=== PATIENT | female | born 1960 | race Caucasian/White ===

== ENCOUNTER → 2016-09-30 | Outpatient (CLI) | payer BC ==
--- NOTE | 2016-09-30 09:30 | WWHP ---
DATE OF SERVICE: 09/20/2016 CHIEF COMPLAINT: Patient is here for her routine gynecologic exam and mammogram. HPI: This is a 56-year-old, G2, P2 with an LMP of 2003. She is status post FRANKLIN/BSO for uterine fibroids. The patient has been on Estrace 0.5 mg daily during the past year. She states for the entire year, she has had hot flashes and has constantly been feeling warm and sweaty. She states she tends to always feel flush as well. She would like to go back up to Estrace 1 mg daily. PAST MEDICAL HISTORY: Unremarkable. MEDICATIONS: Estrace 0.5 mg daily. ALLERGIES: No known drug allergies. 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 SOCIAL HISTORY: She quit smoking in 02/2016. She denies alcohol and drug use. She has been since 1994 and this is her second marriage. 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 She has 2 grandsons born in 2015. REVIEW OF SYSTEMS: She has gained 12 pounds over the last year. She denies respiratory, cardiac, or GI problems. PHYSICAL EXAM: Blood pressure 108/74. Height 5 feet 10 inches, weight 211 pounds. Temperature 97.6, pulse 67. This a well-developed, well-nourished white female who is alert and oriented x3 in no acute distress. HEENT is within normal limits. NECK: Supple without mass or thyromegaly. CHEST AND LUNGS: Clear to auscultation. HEART: Regular rate and rhythm. Breasts are without mass or discharge. Axillary exam is negative for adenopathy. BACK: Negative for CVA tenderness. ABDOMEN: Soft, nontender, without palpable masses. PELVIC EXAM: Normal external genitalia. Vagina appears normal without significant atrophy. There is no evidence of prolapse. Bimanual exam is negative for mass or tenderness. Rectovaginal exam is negative for mass or tenderness and is negative for occult blood. EXTREMITIES: Nontender. IMPRESSION: 1. A 56-year-old menopausal female, status post total abdominal hysterectomy/bilateral salpingo-oophorectomy for benign reasons with normal gynecologic exam. 2. Moderate vasomotor symptoms on the lower dose of ERT. PLAN: 1. Pap smears have been discontinued. 2. Self breast examination was discussed. 3. Mammogram will be done today. 4. We have had a long discussion regarding ERT and we have again discussed the importance of trying to use the lowest effective dose. She does not seem to be doing very well with the current dose. We will go back up to one Estrace 1 mg daily. Within the upcoming year she will again try to wean down from this dose. 5. Osteoporosis prevention was discussed. 6. Colonoscopy is due and she states she will be seeing Dr. Akhtar for this. 7. She will return in one year.
--- NOTE | 2016-10-01 11:28 | MM ---
Reason for exam: screening (asymptomatic). Last mammogram was performed 1 year ago. History: Patient is postmenopausal and history of other cancer. Family history of breast cancer in paternal aunt at age 55. Took hormonal contraceptives for 6 years beginning at age 19. Taking estrogen for 6 years 4 months beginning at age 43. Physical Findings: A clinical breast exam by your physician is recommended on an annual basis and results should be correlated with mammographic findings. MG Screening Mammo w CAD Bilateral CC and MLO view(s) were taken. Prior study comparison: September 17, 2015, bilateral MG screening mammo w CAD. September 05, 2014, bilateral MG screening mammo w CAD. There are scattered fibroglandular densities. No significant changes when compared with prior studies. ASSESSMENT: Benign, BI-RAD 2 RECOMMENDATION: Routine screening mammogram of both breasts in 1 year.
== END | disposition home or self-care (01) ==
LOC: WWCWWP 08:31
PROVIDERS: ATTEND Obstetrics & Gynecology
DX: Z12.31 Encounter for screening mammogram for malignant neoplasm of breast (principal)

== ENCOUNTER → 2018-02-01 | Outpatient (CLI) | payer BC ==
[2018-02-01 16:18] VITALS: BP 134/75; PULSE 92; TEMP 97.3; BMI 29.5
--- NOTE | 2018-02-01 17:01 | P.HPOB ---
History of Present Illness H&P Date: 02/01/18 Chief Complaint: The patient is here for her routine gynecologic exam and mammogram. This is a 57-year-old with an LMP of 2003. The patient is status post FRANKLIN BSO for uterine fibroids. The patient has been on Estrace for ERT for several years. 2 years ago she tried to wean from Estrace 1 mg to 0.5 mg daily , but had severe hot flashes. During the past year, we went back to 1 mg daily and she states she has done much better. During the summer, she tried to take 1 mg every other day but had worse hot flashes and redness with flushing up her neck at several times during the day. She is otherwise without complaints. Review of Systems The patient has lost 5 pounds over the last year. She denies respiratory, cardiac, or G.I. problems. 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 She had a FRANKLIN BSO for uterine fibroids. History of Any Multi-Drug Resistant Organisms: None Reported Past Surgical History: Cholecystectomy (Laparoscopic), Hysterectomy (FRANKLIN BSO in 2003) Additional Past Surgical History / Comment(s): Colonoscopy 2010. Past Psychological History: No Psychological Hx Reported Smoking Status: Current every day smoker (Half a pack or less per day.) Past Alcohol Use History: None Reported Past Drug Use History: None Reported Additional History: She has been since 1994 and this is her 2nd marriage. 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 - Past Family History Mother Family Medical History: Cancer (Colon cancer) Additional Family Medical History / Comment(s): Nephew had non-Hodgkin's lymphoma, maternal aunt had ovarian cancer. Father Family Medical History: Cancer (Lung cancer) Brother(s) Family Medical History: Cancer (Melanoma) Medications and Allergies Home Medications Medication Instructions Recorded Confirmed Type Estradiol [Estrace] 1 mg PO DAILY 02/01/18 02/01/18 History Allergies Allergy/AdvReac Type Severity Reaction Status Date / Time No Known Allergies Allergy Unverified 02/01/18 16:14 Exam Vital Signs Temp Pulse BP 02/01/18 16:14 97.3 F L 92 134/75 Intake and Output 02/01/18 02/01/18 02/01/18 06:59 14:59 22:59 Other: Weight 93.44 kg Height 5'10", BMI 29.6. This is a well-developed well-nourished white female who is alert and oriented times 3 in no acute distress. HEENT: Within normal limits. NECK: Supple without mass or thyromegaly. CHEST AND LUNGS: Clear to auscultation. HEART: Regular rate and rhythm. BREASTS: Are without mass or discharge. AXILLARY EXAM: Negative for adenopathy. BACK: Negative for CVA tenderness. ABDOMEN: Soft, nontender, without palpable masses. PELVIC EXAM: External genitalia appears normal with mild atrophy. Vagina appears normal with mild atrophy. There is no evidence of prolapse. Bimanual examination is negative for mass or tenderness. RECTAL EXAM: Rectovaginal exam is negative for mass or tenderness and is negative for occult blood. EXTREMITIES: Nontender. IMPRESSION: 1. 57-year-old menopausal female status post FRANKLIN BSO for benign reasons with normal gynecologic exam. 2. The patient is on ERT in the form of estradiol 1 mg daily. Vasomotor symptoms were worse when she tried to take it every other day. PLAN: 1. Pap smears have been discontinued. 2. Self breast awareness was discussed with the patient. 3. Screening mammogram will be done today. 4. We have had a long discussion regarding ERT and menopausal symptoms. I have strongly recommended that she continued to try to wean off of ERT. We'll try decreasing the estradiol to 0.5 mg daily. We have discussed other options including transdermal ERT and taking the estradiol in the morning instead of at HS. She will call if she is having significant symptoms if she thinks we should try something different. The electronic prescription for her ERT will be sent to [facility] pharmacy. 5. Osteoporosis prevention was discussed. 6. I've recommended screening colonoscopy based on her age. She has an appointment with Dr. Hutchinson in March for this. 7. She will return in one year.
--- NOTE | 2018-02-02 13:47 | MM ---
Reason for exam: screening (asymptomatic). Last mammogram was performed 1 year and 4 months ago. History: Patient is postmenopausal and history of other cancer. Family history of breast cancer in paternal aunt at age 55. Took hormonal contraceptives for 6 years beginning at age 19. Taking estrogen for 6 years 4 months beginning at age 43. Physical Findings: A clinical breast exam by your physician is recommended on an annual basis and results should be correlated with mammographic findings. MG 3D Screening Mammo W/Cad Bilateral CC and MLO view(s) were taken. Prior study comparison: September 30, 2016, bilateral MG screening mammo w CAD. September 17, 2015, bilateral MG screening mammo w CAD. The breast tissue is heterogeneously dense. This may lower the sensitivity of mammography. No significant changes when compared with prior studies. ASSESSMENT: Negative, BI-RAD 1 RECOMMENDATION: Routine screening mammogram of both breasts in 1 year.
== END | disposition home or self-care (01) ==
LOC: WWCWWP 15:58
PROVIDERS: ATTEND Obstetrics & Gynecology
DX: Z12.31 Encounter for screening mammogram for malignant neoplasm of breast (principal)
CPT/HCPCS: 77063; 77067

== ENCOUNTER 2018-03-09 09:16 | Day surgery (SDC) | payer BC ==
[2018-03-09] MEDS ORDERED: LACTATED RINGERS 1,000 ML IV SCH (09:27)
[2018-03-09] MEDS ORDERED: HYDROmorphone 1 MG/ML 1 ML SYRINGE IVP PRN (09:27)
[2018-03-09] MEDS ORDERED: LACTATED RINGERS 1,000 ML IV ONE (09:36)
[2018-03-09] MEDS ORDERED: LIDOCAINE 1% 20 ML VIAL (10MG/ML) FOR IV START INTRADERMA ONE (09:36)
[2018-03-09 09:41] VITALS: RESP 16; TEMP 96.9
[2018-03-09] MEDS ORDERED: PROPOFOL 10 MG/ML 20 ML VIAL IV ONE (10:07)
[2018-03-09] MEDS ORDERED: LIDOCAINE 1% INJ 10MG/ML (20 ML MDV) ONE (10:07)
--- NOTE | 2018-03-09 10:11 | P.GSHP ---
History of Present Illness H&P Date: 03/09/18 CHIEF COMPLAINT: Colon screen HISTORY OF PRESENT ILLNESS: The patient is a 57-year-old female who presents for colon screen. Lower endoscopy was offered for further evaluation and management. PAST MEDICAL HISTORY: Please see list. PAST SURGICAL HISTORY: Please see list. MEDICATIONS: Please see list. ALLERGIES: Please see list. SOCIAL HISTORY: No illicit drug use FAMILY HISTORY: No reports of Crohn disease or ulcerative colitis. REVIEW OF ORGAN SYSTEMS: CONSTITUTIONAL: No reports of fevers or chills. PHYSICAL EXAM: VITAL SIGNS: Stable GENERAL: Well-developed pleasant in no acute distress. HEENT: No scleral icterus. Extraocular movements grossly intact. Moist buccal mucosa. NECK: Supple without lymphadenopathy. CHEST: Unlabored respirations. Equal bilateral excursions. CARDIOVASCULAR: Regular rate and rhythm. Distal 2+ pulses. ABDOMEN: Soft, nontender, nondistended. MUSCULOSKELETAL: No clubbing, cyanosis, or edema. ASSESSMENT: 1. Colon screen. PLAN: 1. Recommend proceeding with a lower endoscopy Past Medical History Past Medical History: Cancer, GERD/Reflux, Pneumonia Additional Past Medical History / Comment(s): SKIN CANCER History of Any Multi-Drug Resistant Organisms: None Reported Past Surgical History: Hysterectomy, Tubal Ligation Additional Past Surgical History / Comment(s): Colonoscopy 2010. Past Anesthesia/Blood Transfusion Reactions: Motion Sickness Additional Past Anesthesia/Blood Transfusion Reaction / Comment(s): SLOW TO WAKE UP. HX OF VERTIGO. Past Psychological History: No Psychological Hx Reported Smoking Status: Former smoker Past Alcohol Use History: None Reported Additional Past Alcohol Use History / Comment(s): QUIT 2 YRS, WAS LESS THAN A PPD. Past Drug Use History: None Reported - Past Family History Mother Family Medical History: Cancer (Colon cancer) Additional Family Medical History / Comment(s): Nephew had non-Hodgkin's lymphoma, maternal aunt had ovarian cancer. Father Family Medical History: Cancer (Lung cancer) Brother(s) Family Medical History: Cancer (Melanoma) Medications and Allergies Home Medications Medication Instructions Recorded Confirmed Type Estradiol [Estrace] 0.5 mg PO DAILY #90 tablet 02/01/18 03/09/18 Rx Acetaminophen/Diphenhydramine 1 tab PO HS PRN 03/04/18 03/09/18 History [Tylenol PM Extra Strength] Allergies Allergy/AdvReac Type Severity Reaction Status Date / Time No Known Allergies Allergy Verified 03/09/18 09:27 Surgical - Exam Vital Signs Temp Pulse Resp BP Pulse Ox 96.9 F L 95 16 116/66 96 03/09/18 09:39 03/09/18 09:39 03/09/18 09:39 03/09/18 09:39 03/09/18 09:39
--- NOTE | 2018-03-09 10:26 | P.PCN ---
Date of Procedure: 03/09/18 Description of Procedure: PREOPERATIVE DIAGNOSIS: Colonoscopy screening. Family history of colon cancer POSTOPERATIVE DIAGNOSIS: Colonoscopy screening. Family history of colon cancer Diverticulosis, scattered. OPERATION: Colonoscopy to the ileocecal valve and appendiceal orifice. SURGEON: Arianna Hutchinson MD. ANESTHESIA: MAC. INDICATIONS: The patient is a 57-year-old female who presents for colonoscopy screening. Benefits and risks were described and informed consent was obtained. DESCRIPTION OF PROCEDURE: The patient had undergone Gatorade, MiraLAX and Dulcolax prep. She had been brought into the operating room and laid in the left lateral decubitus position. After adequate intravenous sedation, the rectum was examined with 2% lidocaine jelly. No external hemorrhoids were encountered. The rectal tone was within normal limits. No lesions were palpated in the rectal vault. An Olympus colonoscope was advanced until the ileocecal valve and appendiceal orifice were clearly viewed. The prep was excellent with clear visualization of the mucosal folds. The scope was removed with visualization of each mucosal fold. Scattered diverticulosis was encountered. No colonic polyps were found. No evidence of focal colitis was found. Retroflexion of the scope demonstrated grade 1 internal hemorrhoids without active bleeding or inflammation. The colon was desufflated. The patient had tolerated the procedure well. Withdrawal time was over 6 minutes. FINDINGS: Internal hemorrhoids, grade 1 No external prolapsed hemorrhoids. No arteriovenous malformations. Scattered diverticulosis No adenomatous polyps. No focal colitis. RECOMMENDATIONS: Lower endoscopy in 5 years, 2022 Plan - Discharge Summary Discharge Rx Participant: No New Discharge Prescriptions: No Action Estradiol [Estrace] 0.5 mg PO DAILY #90 tablet Acetaminophen/Diphenhydramine [Tylenol PM Extra Strength] 1 tab PO HS PRN PRN Reason: Insomnia Discharge Medication List Estradiol [Estrace] 0.5 mg PO DAILY #90 tablet 02/01/18 [Rx] Acetaminophen/Diphenhydramine [Tylenol PM Extra Strength] 1 tab PO HS PRN [History]
[2018-03-09 10:53] VITALS: BP 117/74; PULSE 74
== END 2018-03-09 11:06 | disposition home or self-care (01) ==
LOC: ORWHC2ENDO 09:16
PROVIDERS: ATTEND Surgery Plastic and Reconstructive Surgery
DX: Z12.11 Encounter for screening for malignant neoplasm of colon (principal); Z80.0 Family history of malignant neoplasm of digestive organs; K57.30 Diverticulosis of large intestine without perforation or abscess without bleeding; K64.0 First degree hemorrhoids; K21.9 Gastro-esophageal reflux disease without esophagitis; Z87.891 Personal history of nicotine dependence; G47.00 Insomnia, unspecified; Z85.828 Personal history of other malignant neoplasm of skin; Z79.890 Hormone replacement therapy
CPT/HCPCS: J2001; J2704; G0105; 45378

== ENCOUNTER → 2018-04-14 | Outpatient (CLI) | payer BC ==
[2018-04-14 14:03] LABS: Basophils # (A) 0.1 k/uL (0-0.2); Basophils % (A) 1 %; Eosinophils # (A) 0.1 k/uL (0-0.7); Eosinophils % (A) 2 %; HCT 41.6 % (34.0-46.0); HGB 13.8 gm/dL (11.4-16.0); Lymphocytes # (A) 1.9 k/uL (1.0-4.8); Lymphocytes % (A) 39 %; MCH 31.4 pg (25.0-35.0); MCHC 33.1 g/dL (31.0-37.0); MCV 94.8 fL (80.0-100.0); Mean Platelet Volume 7.1; Monocytes # (A) 0.2 k/uL (0-1.0); Monocytes % (A) 5 %; Neutrophils # (A) 2.5 k/uL (1.3-7.7); Neutrophils % (A) 52 %; Platelet Count 225 k/uL (150-450); RBC 4.38 m/uL (3.80-5.40); RDW 13.2 % (11.5-15.5); WBC 4.8 k/uL (3.8-10.6)
[2018-04-14 18:47] LABS: Anion Gap 9.1 mmol/L (4.00-12.00); Calcium 9.3 mg/dL (8.7-10.3); Carbon Dioxide 26.9 mmol/L (21.6-31.8); Potassium 4.2 mmol/L (3.5-5.5)
== END | disposition home or self-care (01) ==
LOC: LABWHC1 11:59
PROVIDERS: ATTEND Hospitalist
DX: J18.9 Pneumonia, unspecified organism (principal)
CPT/HCPCS: 36415; 80048; 85025

== ENCOUNTER → 2021-07-01 | Outpatient (CLI) | payer BC ==
--- NOTE | 2021-07-01 09:30 | BD ---
EXAMINATION TYPE: Axial Bone Density DATE OF EXAM: 07/01/2021 COMPARISON: DEXA bone scan report 2003 CLINICAL HISTORY: Postmenopausal female Height: 5 FT 8 IN Weight: 199 FRAX RISK QUESTIONS: Alcohol (3 or more units per day): NO Family History (Parent hip fracture): NO Glucocorticoids (More than 3mos): NO (Ex: prednisone, prednisolone, methylprednisolone, dexamethasone, and hydrocortisone). History of Fracture in Adulthood: NO Secondary Osteoporosis: 1. Type 1 Diabetes: NO 2. Hyperthyroidism: NO 3. Menopause before 45: YES 4. Malnutrition: NO 5. Chronic liver disease: NO Rheumatoid Arthritis: NO Current Tobacco Use: NO RISK FACTORS HISTORY OF: Surgery to Spine/Hip(right/left)/Wrist (right/left): NO Family History of Osteoporosis: NO Active: YES Diet low in dairy products/other sources of calcium: NO Postmenopausal woman: YES Take estrogen and/or progesterone medications: NO Lost more than 2 inches in height since high school: YES Frequent falls: NO Poor Health: GOOD Hyperparathyroidism: NO Adrenal Insufficiency: NO MEDICATIONS: Additional Medications: HRT ,CHOLESTEROL MEDS, Additional History: EXAM MEASUREMENTS: Bone mineral densitometry was performed using the [employer] System. Bone mineral density as measured about the Lumbar spine is: ----- L1-L4(G/cm2): 1.420 T Score Values are as follows: ----- L2: 1.6 ----- L3: 2.2 ----- L4: 1.7 ----- L1-L4: 2.0 Bone mineral density has: DECREASED -2.3 % since study of: 2003 Bone mineral density about the R hip (g/cm2): 1.176 Bone mineral density about the L hip (g/cm2): 1.197 T Score values are as follows: -----R Neck: 1.0 -----L Neck: 1.1 -----R Total: 1.6 -----L Total: 1.9 Bone mineral density has: DECREASED -0.1 % since study of: 2003 IMPRESSION: Normal (Values between +1 and -1 indicate normal bone mass). Consider repeating this study in 5 year s or sooner if there is some new clinical indication. NOTE: T-SCORE=SD OF THE YOUNG ADULT MEAN.
--- NOTE | 2021-07-01 11:45 | MM ---
Reason for exam: screening (asymptomatic). Last mammogram was performed 3 years and 5 months ago. History: Patient is postmenopausal and has history of other cancer at age 49. Family history of breast cancer in paternal aunt at age 55. Took hormonal contraceptives for 6 years beginning at age 19. Taking estrogen for 6 years 4 months beginning at age 43. Physical Findings: A clinical breast exam by your physician is recommended on an annual basis and results should be correlated with mammographic findings. MG 3D Screening Mammo W/Cad Bilateral CC and MLO view(s) were taken. Prior study comparison: February 01, 2018, bilateral MG 3d screening mammo w/cad. September 30, 2016, bilateral MG screening mammo w CAD. There are scattered fibroglandular densities. There is no discrete abnormality. ASSESSMENT: Negative, BI-RAD 1 RECOMMENDATION: Routine screening mammogram of both breasts in 1 year.
== END | disposition home or self-care (01) ==
LOC: RADMAMWWP 08:15
PROVIDERS: ATTEND Family Medicine
DX: Z12.31 Encounter for screening mammogram for malignant neoplasm of breast (principal); Z78.0 Asymptomatic menopausal state; Z80.3 Family history of malignant neoplasm of breast
CPT/HCPCS: 77063; 77067; 77080

== ENCOUNTER → 2023-06-03 | Outpatient (CLI) | payer SELFPAY ==
--- NOTE | 2023-06-03 12:20 | MM ---
Reason for Exam: Screening (asymptomatic). Last mammogram was performed 1 year(s) and 11 month(s) ago. Patient History: Menarche at age 14. First Full-Term at age 26. Left ovary removed at age 43. Right ovary removed at age 43. Hysterectomy at age 43. Postmenopausal. Other cancer, age 49. Currently using Estrogen, beginning at age 43 for 6 years, 4 months. Hormonal Contraceptives for 6 years from age 19 until age 25. Paternal aunt had breast cancer, age 55. Risk Values: Eugenie 5 year model risk: 1.7%. NCI Lifetime model risk: 7.7%. Prior Study Comparison: 09/30/2016 Bilateral Screening Mammogram, [facility]. 02/01/2018 Bilateral Screening Mammogram, [facility]. 07/01/2021 Bilateral Screening Mammogram, [facility]. Tissue Density: There are scattered fibroglandular densities. Findings: Analyzed By CAD. There is no suspicious group of microcalcifications or new suspicious mass. Benign-appearing calcifications right breast. Overall Assessment: Benign, BI-RAD 2 Management: Screening Mammogram of both breasts in [address] [facility] will attempt to contact patient to return for supplemental views and ultrasound if indicated. Patient should continue monthly self-breast exams. A clinical breast exam by your physician is recommended on an annual basis. This exam should not preclude additional follow-up of suspicious palpable abnormalities. Note on Eugenie scores and lifetime risk: 1. A Eugenie score greater than 3% is considered moderate risk. If this is the case, consider specialist referral to assess eligibility for a risk reducing agent. 2. If overall lifetime risk for the development of breast cancer is 20% or higher, the patient may qualify for future screening with alternating mammogram and breast MRI. Electronically signed and approved by: Holden Dueñas DO
== END | disposition home or self-care (01) ==
LOC: RADMAMWWP 08:51
PROVIDERS: ATTEND Family Medicine
DX: Z12.31 Encounter for screening mammogram for malignant neoplasm of breast (principal); Z78.0 Asymptomatic menopausal state; Z80.3 Family history of malignant neoplasm of breast
CPT/HCPCS: 77067